=== PATIENT | female | born 1955 | race Caucasian/White ===

== ENCOUNTER 2019-03-11 19:14 | Outpatient (REF) | payer OTHER, SELFPAY ==
[2019-03-11 19:58] LABS: Anion Gap 8.2 mmol/L (3-11); BUN 15 mg/dL (7-18); CO2 27.8 mmol/L (21.0-32.0); CREATININE 1.15 mg/dL (0.55-1.02); Calcium 8.9 mg/dL (8.5-10.1); Chloride 102 mmol/L (98-107); Cholesterol 131 mg/dL (50-200); Estimated GFR 47.51 (mL/min/1.73m2); Glucose 94 mg/dL (70-100); HDL Cholesterol 75 mg/dL (40-60); Potassium 4.2 mmol/L (3.5-5.1); Sodium 138 mmol/L (136-145)
[2019-03-11 20:04] LABS: Triglyceride < 25 mg/dL (30-150)
[2019-03-11 20:38] LABS: LDL CHOLESTEROL 52 mg/dL (<100)
[2019-03-15 11:26] LABS: Hepatitis C Ab w Rflx HCV PCR Reactive (NEGAT)
== END 2019-03-11 19:34 ==
LOC: NCHCN 19:14
PROVIDERS: Visit Provider Internal Medicine
DX: Z00.00 Encounter for general adult medical examination without abnormal findings (principal); G20 Parkinson's disease; I10 Essential (primary) hypertension
CPT/HCPCS: 80048; 80061; 83721; 86803; 84443; 87522

== ENCOUNTER 2019-03-19 16:58 | Outpatient (REF) | payer OTHER, SELFPAY ==
[2019-03-19 20:04] LABS: HCT 42.3 % (36.0-46.0); HGB 14.2 g/dL (12.0-15.5); Mean Corp. HGB Concentration 33.6 g/dL (32.0-36.0); Mean Corpuscular Hemoglobin 29.6 pg (27.0-33.0); Mean Corpuscular Volume 88.3 fL (80-95); Mean Platelet Volume 11.5 fL (8.0-11.0); Platelet Count 239 x1000/uL (130-400); RBC 4.79 m/cumm (4.00-5.20); RBC Distribution Width 13.7 % (11.7-14.6)
[2019-03-19 20:10] LABS: ALT 25 U/L (14-59); AST 35 U/L (15-37); Albumin 4.4 g/dL (3.4-5.0); Alkaline Phosphatase 71 U/L (46-116); Bilirubin, Direct 0.19 mg/dL (0.00-0.20); Bilirubin, Total 0.5 mg/dL (0.2-1.0); Total Protein 7.6 g/dL (6.4-8.2)
[2019-03-19 20:12] LABS: PTT Activated 23.4 sec (21.0-31.4); Prothrombin Time 9.8 sec (9.3-11.0)
[2019-03-22 11:35] LABS: Hepatitis C Ab w Rflx HCV PCR Reactive (NEGAT)
== END 2019-03-19 17:18 ==
LOC: NCHCN 16:58
PROVIDERS: PCP Internal Medicine; Visit Provider Internal Medicine
DX: B19.20 Unspecified viral hepatitis C without hepatic coma (principal)
CPT/HCPCS: 80076; 85027; 86803; 85610; 85730; 87522

== ENCOUNTER 2019-05-21 18:46 | Outpatient (REF) | payer OTHER, SELFPAY ==
[2019-05-25 16:56] LABS: HCV Genotype 1a (Undetected)
== END 2019-05-21 19:06 ==
LOC: NCHCN 18:46
PROVIDERS: PCP Internal Medicine; Visit Provider Internal Medicine
DX: B19.20 Unspecified viral hepatitis C without hepatic coma (principal)
CPT/HCPCS: 87521

== ENCOUNTER 2019-07-26 16:45 | Outpatient (REF) | payer OTHER, SELFPAY ==
[2019-07-28 09:11] LABS: Hepatitis B Surface Ag Negative (Negative)
== END 2019-07-26 17:05 ==
LOC: NCHCN 16:45
PROVIDERS: PCP Internal Medicine; Visit Provider Internal Medicine
DX: B19.20 Unspecified viral hepatitis C without hepatic coma (principal)
CPT/HCPCS: 87340

== ENCOUNTER 2019-11-01 15:32 | Outpatient (REF) | payer OTHER, SELFPAY ==
[2019-11-01 18:49] LABS: HCT 41.6 % (40.0-50.0); HGB 14.3 g/dL (13.5-17.5); Mean Corp. HGB Concentration 34.4 g/dL (32.0-36.0); Mean Corpuscular Hemoglobin 29.7 pg (27.0-33.0); Mean Corpuscular Volume 86.5 fL (80-95); Mean Platelet Volume 11.6 fL (8.0-11.0); Platelet Count 209 x1000/uL (130-400); RBC 4.81 m/cumm (4.50-6.00); White Blood Cell Count 6.72 k/cumm (4.4-10.8)
[2019-11-01 19:04] LABS: ALT 15 U/L (16-63); AST 25 U/L (15-37); Alkaline Phosphatase 69 U/L (46-116); Bilirubin, Direct 0.14 mg/dL (0.00-0.20); Bilirubin, Total 0.6 mg/dL (0.2-1.0); Total Protein 7.3 g/dL (6.4-8.2)
[2019-11-03 10:35] LABS: Hepatitis C Ab w Rflx HCV PCR Reactive (Negative)
[2019-11-04 15:03] LABS: HCV RNA Qualitative Undetected (Undetected)
== END 2019-11-01 15:52 ==
LOC: NCHCN 15:32
PROVIDERS: PCP Internal Medicine; Visit Provider Internal Medicine
DX: B19.20 Unspecified viral hepatitis C without hepatic coma (principal); I10 Essential (primary) hypertension
CPT/HCPCS: 80076; 85027; 86803; 87522

== ENCOUNTER → 2020-04-18 08:04 | Outpatient (BNVA) | payer MEDICARE, OTHER, SELFPAY | PROVIDERS: PCP Internal Medicine; Referring Provider Internal Medicine; Visit Provider Psychiatry & Neurology Neurology | DX: G20 Parkinson's disease (principal); G24.9 Dystonia, unspecified; G24.01 Drug induced subacute dyskinesia; T44 Poisoning by, adverse effect of and underdosing of drugs primarily affecting the autonomic nervous system; K59.00 Constipation, unspecified; R13.10 Dysphagia, unspecified; I10 Essential (primary) hypertension | CPT/HCPCS: 99214 ==

== ENCOUNTER 2020-10-19 17:56 | Outpatient (REF) | payer MEDICARE, OTHER, SELFPAY ==
[2020-10-19 18:02] LABS: HCT 42.1 % (40.0-50.0); MCH 29.4 pg (27.0-33.0); MCHC 33.3 % (32.0-36.0); MCV 88.3 fL (80-95); MPV 11.5 fL (8.0-11.0); Platelet Count 205 10^3/uL (130-400); RBC 4.77 10^6/uL (4.36-5.78); RDW 12.7 % (11.8-14.1); RDW-SD 41.3 fL; WBC 5.82 10^3/uL (4.4-10.8)
[2020-10-19 18:20] LABS: ALT 9 U/L (16-63); AST 12 U/L (15-37); Albumin 4.3 g/dL (3.4-5.0); Alkaline Phosphatase 77 U/L (46-116); Anion Gap 6.8 mmol/L (3-11); BUN 14 mg/dL (7-18); Bilirubin, Total 0.6 mg/dL (0.2-1.0); CO2 30.2 mmol/L (21.0-32.0); CREATININE 1.2 mg/dL (0.70-1.30); Chloride 105 mmol/L (98-107); Glucose 97 mg/dL (74-106); Potassium 4.5 mmol/L (3.5-5.1); Sodium 142 mmol/L (136-145); Total Protein 7.4 g/dL (6.4-8.2)
== END 2020-10-19 17:57 | disposition home or self-care (01) ==
LOC: NCHCN 17:56
PROVIDERS: PCP Internal Medicine; Visit Provider Internal Medicine
DX: I10 Essential (primary) hypertension (principal); G20 Parkinson's disease
CPT/HCPCS: 80053; 85027

== ENCOUNTER 2021-10-10 13:49 | Outpatient (REF) | payer MEDICARE, OTHER, SELFPAY ==
[2021-10-10 21:38] LABS: HGB 14.4 g/dL (13.5-17.5); MCH 28.5 pg (27.0-33.0); MCV 88.9 fL (80-95); MPV 11.7 fL (8.0-11.0); Platelet Count 242 10^3/uL (130-400); RBC 5.06 10^6/uL (4.36-5.78); RDW 13.6 % (11.8-14.1); RDW-SD 44.4 fL; WBC 6.07 10^3/uL (4.4-10.8)
[2021-10-10 21:55] LABS: AST 14 U/L (15-37); Albumin 4.2 g/dL (3.4-5.0); Alkaline Phosphatase 86 U/L (46-116); Anion Gap 5.9 mmol/L (3-11); BUN 14 mg/dL (7-18); Bilirubin, Total 0.7 mg/dL (0.2-1.0); CO2 31.1 mmol/L (21.0-32.0); CREATININE 1.1 mg/dL (0.70-1.30); Calcium 8.6 mg/dL (8.5-10.1); Chloride 102 mmol/L (98-107); Glucose 85 mg/dL (74-106); Potassium 4.5 mmol/L (3.5-5.1); Sodium 139 mmol/L (136-145); Total Protein 7.4 g/dL (6.4-8.2)
[2021-10-10 22:07] LABS: ALT < 6 U/L (16-63)
== END 2021-10-10 13:50 | disposition home or self-care (01) ==
LOC: NCHCN 13:49
PROVIDERS: PCP Internal Medicine; Visit Provider Internal Medicine
DX: I10 Essential (primary) hypertension (principal); B19.20 Unspecified viral hepatitis C without hepatic coma; G20 Parkinson's disease
CPT/HCPCS: 80053; 85027

== ENCOUNTER 2022-10-25 16:08 | Outpatient (REF) | payer MEDICARE, SELFPAY ==
[2022-10-25 19:39] LABS: ALT 15 U/L (16-63); AST 16 U/L (15-37); Alkaline Phosphatase 94 U/L (46-116); Anion Gap 8.4 mmol/L (3-11); BUN 15 mg/dL (7-18); Bilirubin, Total 0.3 mg/dL (0.2-1.0); CO2 27.6 mmol/L (21.0-32.0); CREATININE 1.1 mg/dL (0.70-1.30); Calcium 8.6 mg/dL (8.5-10.1); Calculated LDL 68 mg/dL (<100); Chloride 105 mmol/L (98-107); Cholesterol 157 mg/dL (<200); Estimated GFR 73.58 (mL/min/1.73m2); Glucose 129 mg/dL (74-106); HDL Cholesterol 69 mg/dL (40-60); Potassium 4.1 mmol/L (3.5-5.1); Sodium 141 mmol/L (136-145); Total Protein 7.7 g/dL (6.4-8.2); Triglyceride 103 mg/dL (<150)
== END 2022-10-25 16:09 | disposition home or self-care (01) ==
LOC: NCHCN 16:08
PROVIDERS: PCP Internal Medicine; Visit Provider Internal Medicine
DX: I10 Essential (primary) hypertension (principal); E78.5 Hyperlipidemia, unspecified; B19.20 Unspecified viral hepatitis C without hepatic coma; G20 Parkinson's disease
CPT/HCPCS: 80053; 80061

== ENCOUNTER 2024-04-29 11:35 | Outpatient (REF) | payer MEDICARE, SELFPAY ==
[2024-04-29 19:56] LABS: BUN 13 mg/dL (7-18); CREATININE 1.1 mg/dL (0.70-1.30); Calcium 9.1 mg/dL (8.5-10.1); Calculated LDL 62 mg/dL (<100); Chloride 107 mmol/L (98-107); Cholesterol 141 mg/dL (<200); Estimated GFR 72.67 (mL/min/1.73m2); Glucose 100 mg/dL (74-106); HDL Cholesterol 73 mg/dL (40-60); Potassium 4.7 mmol/L (3.5-5.1); Sodium 143 mmol/L (136-145); Triglyceride 32 mg/dL (<150)
== END 2024-04-29 11:36 | disposition home or self-care (01) ==
LOC: NCHCN 11:35
PROVIDERS: PCP Internal Medicine; Visit Provider Internal Medicine
DX: I10 Essential (primary) hypertension (principal)
CPT/HCPCS: 80048; 80061

== ENCOUNTER 2025-05-17 15:20 | Outpatient (REF) | payer MEDICARE, OTHER, SELFPAY ==
[2025-05-17 20:01] LABS: AST 18 U/L (<34); Albumin 4.4 g/dL (3.4-5.0); Alkaline Phosphatase 73 U/L (46-116); Anion Gap 9.6 mmol/L (3-11); BUN 16 mg/dL (9-23); Bilirubin, Direct 0.2 mg/dL (<=0.3); Bilirubin, Total 0.50 mg/dL (0.2-1.2); CO2 25.4 mmol/L (20.0-31.0); Calcium 8.9 mg/dL (8.3-10.6); Chloride 106 mmol/L (98-107); Cholesterol 143 mg/dL (<200); Glucose 87 mg/dL (74-106); HDL Cholesterol 59 mg/dL (>40); Potassium 3.9 mmol/L (3.5-5.1); Sodium 141 mmol/L (136-145); Total Protein 7.2 g/dL (5.7-8.2)
[2025-05-17 20:10] LABS: ALT < 9 U/L (10-49)
== END 2025-05-17 15:21 | disposition home or self-care (01) ==
LOC: NCHCN 15:20
PROVIDERS: PCP Internal Medicine; Visit Provider Nurse Practitioner
DX: B19.20 Unspecified viral hepatitis C without hepatic coma (principal); I10 Essential (primary) hypertension; E78.5 Hyperlipidemia, unspecified
CPT/HCPCS: 80048; 80061; 80076